=== PATIENT | female | born 1955 | race Caucasian/White ===

== ENCOUNTER 2023-07-13 18:27 | Inpatient (IN) | payer BC, MEDICAID ==
[~2023-07-13] VITALS: Ht 165.1 cm; Wt 81.7 kg
[2023-07-13 20:01] LABS: BASOPHILS # (AUTO) 0.1 X10'3 (0-0.2); BASOPHILS % (AUTO) 0.8 % (0-1); EOSINOPHILS # (AUTO) 0.4 X10'3 (0-0.9); EOSINOPHILS % (AUTO) 3.9 % (0-6); HEMATOCRIT 25.4 % (35.0-45.0); HEMOGLOBIN 8.5 g/dl (12.0-16.0); LYMPHOCYTES # (AUTO) 2.2 X10'3 (1.1-4.8); LYMPHOCYTES % (AUTO) 21.2 % (21-51); MEAN CORPUSCULAR HEMOGLOBIN 26.4 PG (27.0-31.0); MEAN CORPUSCULAR HGB CONC 33.4 g/dL (33.0-36.5); MEAN CORPUSCULAR VOLUME 79.1 FL (78-98); MEAN PLATELET VOLUME 7.3 FL (7.4-10.4); MONOCYTES # (AUTO) 0.8 X10'3 (0-0.9); MONOCYTES % (AUTO) 8.2 % (2-12); NEUTROPHILS # (AUTO) 6.8 X10'3 (1.8-7.7); NEUTROPHILS % (AUTO) 65.9 % (42-75); PLATELET COUNT 262 X10'3 (140-440); RED BLOOD COUNT 3.21 X10'6 (4.20-5.60); RED CELL DISTRIBUTION WIDTH 13.6 % (11.5-14.5); WHITE BLOOD COUNT 10.3 X10'3 (4.5-11.0)
[2023-07-13 20:12] LABS: ALANINE AMINOTRANSFERASE 16 U/L (12-78); ALBUMIN 3.7 G/DL (3.4-5.0); ALKALINE PHOSPHATASE 105 IU/L (46-116); ANION GAP 10 (8-16); ASPARTATE AMINO TRANSFERASE 12 U/L (10-37); BILIRUBIN,TOTAL 0.3 MG/DL (0.1-1.0); BLOOD UREA NITROGEN 46 MG/DL (7-18); BUN/CREATININE RATIO 19.2 (10.0-20.0); CALCIUM 8.1 MG/DL (8.5-10.1); CHLORIDE 106 MMOL/L (99-107); CREATININE 2.39 MG/DL (0.40-0.90); GLUCOSE 139 MG/DL (70-104); POTASSIUM 4.9 MMOL/L (3.5-5.1); SODIUM 139 MMOL/L (135-145); TOTAL CARBON DIOXIDE 23.3 MMOL/L (24-32); TOTAL PROTEIN 7.4 G/DL (6.4-8.2); eCRCL 20 ML/MIN; eGFR 20 ML/MIN
[2023-07-13 20:20] LABS: PRO BRAIN NATRIURETIC PEPTIDE 856 PG/ML (0-125)
[2023-07-13] MEDS: CefTRIAXone 2gm/D5W 50ml BAG 50 ML IV ONE (21:02)
[2023-07-13] MEDS ORDERED: ALB0.5UD IH (21:26)
[2023-07-13] MEDS ORDERED: AMLO2.5T2 PO ×2 (21:28→21:29)
[2023-07-13] MEDS ORDERED: ATOR40TA14 PO (21:30)
[2023-07-13] MEDS ORDERED: FURO-150 PO (21:31)
[2023-07-13] MEDS ORDERED: EMPA25TA PO (21:32)
[2023-07-13] MEDS ORDERED: INSU100V12 SQ (21:33)
[2023-07-13] MEDS ORDERED: VALS320T17 PO (21:34)
[2023-07-13] MEDS ORDERED: LEVO112T39 PO (21:34)
[2023-07-13] MEDS ORDERED: CALC0.2536 PO (21:35)
[2023-07-13] MEDS ORDERED: ONDA4TAB12 PO (21:36)
[2023-07-13] MEDS ORDERED: potassium Cl 40MEQ/1/2NS 520ml 520 ML IV PRN (22:05)
[2023-07-13] MEDS ORDERED: dextrose 50%-water 50ml dispensing syringe IV PRN ×2 (22:05)
[2023-07-13] MEDS ORDERED: potassium Cl 20 mEq SR tablet PO PRN ×2 (22:05)
[2023-07-13] MEDS ORDERED: morphine 2 MG/ML inj. syringe IV PRN (22:05)
[2023-07-13] MEDS ORDERED: magnesium 2GM in 50ml NS 50 ML IV PRN (22:05)
[2023-07-13] MEDS ORDERED: DEXTROSE 15 GM of carb/4 tabs (each vial/BOTTLE has 4 tablets) PO PRN ×2 (22:05)
[2023-07-13] MEDS ORDERED: acetaminophen 325mg tablet PO PRN (22:05)
[2023-07-13] MEDS ORDERED: magnesium Cl slow-release 64mg tablet PO PRN (22:05)
[2023-07-13] MEDS ORDERED: magnesium 4gm in 100ml NS 100 ML IV PRN (22:05)
[2023-07-13] MEDS ORDERED: mag hydrox/Alum hydrox/simeth 30ml oral suspension PO PRN (22:05)
[2023-07-13] MEDS ORDERED: ondansetron/PF 4mg/2ml inj IV PRN (22:05)
[2023-07-13] MEDS ORDERED: glucagon, human recombinant 1mg kit SUBCUT PRN (22:05)
[2023-07-13] MEDS ORDERED: magnesium hydroxide 30ml (MOM) UD suspension PO PRN (22:05)
[2023-07-13 22:41] LABS: MAGNESIUM 1.9 MG/DL (1.5-2.4); PHOSPHORUS 6.2 MG/DL (2.3-4.5)
[2023-07-13] MEDS ORDERED: ondansetron 4mg rapidly disintigrating tab PO PRN (23:05)
[2023-07-13 23:06] LABS: CREATINE KINASE 129 U/L (26-192)
[2023-07-13 23:07] LABS: HEMOGLOBIN A1C 7.1 % (4.5-6.2)
[2023-07-13 23:30] VITALS: BP 153/68; PULSE 74; RESP 18; TEMP 98.2; O2SAT 100
[2023-07-14] MEDS: heparin, porcine 5000 units/ml vial SQ SCH
[2023-07-14] MEDS: normal saline 1000ml 1,000 ML IV SCH (00:43)
[2023-07-14 06:00] VITALS: BP 91/64; PULSE 60; RESP 15; TEMP 96.6; O2SAT 97
[2023-07-14] MEDS: INSULIN LISPRO 100 UNIT/ML INSULN.PEN MULTI-DOSE SQ SCH (07:00)
[2023-07-14 07:11] LABS: ALBUMIN 3.3 G/DL (3.4-5.0); ANION GAP 9 (8-16); BLOOD UREA NITROGEN 45 MG/DL (7-18); BUN/CREATININE RATIO 20.4 (10.0-20.0); CHLORIDE 108 MMOL/L (99-107); CREATININE 2.21 MG/DL (0.40-0.90); GLUCOSE 119 MG/DL (70-104); POTASSIUM 4.3 MMOL/L (3.5-5.1); SODIUM 140 MMOL/L (135-145); TOTAL CARBON DIOXIDE 23.2 MMOL/L (24-32); eCRCL 22 ML/MIN; eGFR 22 ML/MIN
[2023-07-14 07:21] LABS: BASOPHILS # (AUTO) 0.1 X10'3 (0-0.2); BASOPHILS % (AUTO) 0.8 % (0-1); EOSINOPHILS # (AUTO) 0.4 X10'3 (0-0.9); EOSINOPHILS % (AUTO) 4.4 % (0-6); HEMATOCRIT 24.2 % (35.0-45.0); LYMPHOCYTES # (AUTO) 2.3 X10'3 (1.1-4.8); LYMPHOCYTES % (AUTO) 23.9 % (21-51); MEAN CORPUSCULAR HEMOGLOBIN 26.2 PG (27.0-31.0); MEAN CORPUSCULAR HGB CONC 33.1 g/dL (33.0-36.5); MEAN CORPUSCULAR VOLUME 79.3 FL (78-98); MEAN PLATELET VOLUME 7.4 FL (7.4-10.4); MONOCYTES # (AUTO) 0.8 X10'3 (0-0.9); MONOCYTES % (AUTO) 8.1 % (2-12); NEUTROPHILS # (AUTO) 6.1 X10'3 (1.8-7.7); NEUTROPHILS % (AUTO) 62.8 % (42-75); PLATELET COUNT 246 X10'3 (140-440); RED BLOOD COUNT 3.06 X10'6 (4.20-5.60); RED CELL DISTRIBUTION WIDTH 13.6 % (11.5-14.5); WHITE BLOOD COUNT 9.8 X10'3 (4.5-11.0)
[2023-07-14] MEDS: losartan 50mg tablet PO SCH (08:00)
[2023-07-14] MEDS: levoTHYROXINE 112mcg tablet PO SCH (08:00)
[2023-07-14] MEDS ORDERED: amLODIPine 5mg tablet PO SCH ×2 (08:00→21:00)
[2023-07-14] MEDS: K and/or MAG REPLACEMENT MC SCH (08:00)
[2023-07-14 08:30] VITALS: RESP 18; O2SAT 100
[2023-07-14 10:00] VITALS: BP 127/55; PULSE 75; RESP 18; TEMP 97.5; O2SAT 98
[2023-07-14] MEDS ORDERED: piperacillin/tazo 3.375gm/50ml 50 ML IV SCH (10:00)
[2023-07-14] MEDS ORDERED: VANCOMYCIN 750MG IV in NS 250 ML IV SCH (10:02)
[2023-07-14 18:00] VITALS: BP 107/62; PULSE 67; RESP 21; TEMP 98.5; O2SAT 99
[2023-07-14 20:00] VITALS: RESP 21; O2SAT 99
[2023-07-14] MEDS ORDERED: CefTRIAXone/D5W-Rocephin 1gm 50 ML IV SCH (21:00)
[2023-07-14] MEDS: atorvastatin 20mg tablet PO SCH (21:07)
[2023-07-14 22:00] VITALS: BP 121/49; PULSE 58; RESP 16; TEMP 98.3; O2SAT 99
[2023-07-14] MEDS: morphine 2 MG/ML inj. syringe IV PRN (22:12)
[2023-07-14] MEDS: furosemide 20MG tablet PO SCH (22:12)
[2023-07-15 06:00] VITALS: BP 124/52; PULSE 70; RESP 14; TEMP 98.6; O2SAT 97
[2023-07-15 07:31] LABS: BASOPHILS # (AUTO) 0.1 X10'3 (0-0.2); BASOPHILS % (AUTO) 0.9 % (0-1); EOSINOPHILS # (AUTO) 0.4 X10'3 (0-0.9); EOSINOPHILS % (AUTO) 4.1 % (0-6); HEMOGLOBIN 7.8 g/dl (12.0-16.0); LYMPHOCYTES # (AUTO) 2.4 X10'3 (1.1-4.8); LYMPHOCYTES % (AUTO) 27.5 % (21-51); MEAN CORPUSCULAR HEMOGLOBIN 25.9 PG (27.0-31.0); MEAN CORPUSCULAR HGB CONC 32.6 g/dL (33.0-36.5); MEAN CORPUSCULAR VOLUME 79.4 FL (78-98); MEAN PLATELET VOLUME 7.4 FL (7.4-10.4); MONOCYTES # (AUTO) 0.6 X10'3 (0-0.9); MONOCYTES % (AUTO) 6.7 % (2-12); NEUTROPHILS # (AUTO) 5.3 X10'3 (1.8-7.7); NEUTROPHILS % (AUTO) 60.8 % (42-75); PLATELET COUNT 240 X10'3 (140-440); RED BLOOD COUNT 3.02 X10'6 (4.20-5.60); RED CELL DISTRIBUTION WIDTH 13.7 % (11.5-14.5); WHITE BLOOD COUNT 8.8 X10'3 (4.5-11.0)
[2023-07-15 07:41] LABS: ALBUMIN 3.2 G/DL (3.4-5.0); ANION GAP 9 (8-16); BLOOD UREA NITROGEN 41 MG/DL (7-18); BUN/CREATININE RATIO 18.3 (10.0-20.0); CALCIUM 7.8 MG/DL (8.5-10.1); CHLORIDE 107 MMOL/L (99-107); CREATININE 2.24 MG/DL (0.40-0.90); GLUCOSE 108 MG/DL (70-104); POTASSIUM 4.6 MMOL/L (3.5-5.1); SODIUM 139 MMOL/L (135-145); TOTAL CARBON DIOXIDE 23.4 MMOL/L (24-32); eCRCL 21 ML/MIN; eGFR 22 ML/MIN
[2023-07-15 08:30] VITALS: RESP 16; O2SAT 100
[2023-07-15 10:00] VITALS: BP 122/53; PULSE 71; RESP 18; TEMP 98.2; O2SAT 97
== END 2023-07-15 15:05 | disposition home or self-care (01) | DRG 291 ==
LOC: ER 18:28 → UNDOADMIN 22:02 → ED HOLD 22:02 → ORTHO 4S 23:25 → ED HOLD 23:25
PROVIDERS: ADMIT Internal Medicine; ATTEND Internal Medicine
DX: I13.0 Hypertensive heart and chronic kidney disease with heart failure and stage 1 through stage 4 chronic kidney disease, or unspecified chronic kidney disease (principal); I50.33 Acute on chronic diastolic (congestive) heart failure; N17.0 Acute kidney failure with tubular necrosis; F32.A Depression, unspecified; F41.9 Anxiety disorder, unspecified; D64.9 Anemia, unspecified; E11.22 Type 2 diabetes mellitus with diabetic chronic kidney disease; I27.20 Pulmonary hypertension, unspecified; I08.1 Rheumatic disorders of both mitral and tricuspid valves; T46.1X5A Adverse effect of calcium-channel blockers, initial encounter; E89.0 Postprocedural hypothyroidism; E78.5 Hyperlipidemia, unspecified; N18.9 Chronic kidney disease, unspecified; Z88.5 Allergy status to narcotic agent; Z88.8 Allergy status to other drugs, medicaments and biological substances; Y92.89 Other specified places as the place of occurrence of the external cause
CPT/HCPCS: 36415; 71045; 74176; 76882; 80048; 80053; 82550; 83036; 83605; 83735; 83880; 84100; 84443; 84484; 85025; 85651; 87040; 87081; 93005; 93306; 93970; 96365; 97161; 97530; 99285; G0378; J0696; J1644; J1815; J2270; J7030